=== PATIENT | male | born 1990 | race Caucasian/White ===

== ENCOUNTER 2017-08-28 01:42 | Emergency (ER) | payer SELFPAY ==
--- NOTE | 2017-08-28 03:08 | NUR ---
CALLED X4; NOT IN LOBBY
--- NOTE | 2017-08-28 03:29 | NUR ---
CALLED AGAIN; NO ANSWER
--- NOTE | 2017-08-28 03:54 | NUR ---
CALLED AGAIN; INFORMED "PT LEFT"
[2017-08-29] MEDS ORDERED: FLUO20CA36 PO (15:17)
[2017-09-04] MEDS ORDERED: LISI10TA59 PO (11:51)
== END 2017-08-28 03:55 | disposition left against medical advice (07) ==
LOC: ER 01:49
DX: Z53.21 Procedure and treatment not carried out due to patient leaving prior to being seen by health care provider (principal)

== ENCOUNTER 2017-08-29 14:35 | Inpatient (IN) | payer OTHER ==
[2017-08-29] VITALS (34 sets, daily range): BP systolic 69–163; BP diastolic 37–92
[~2017-08-29] VITALS: Ht 180.3 cm; Wt 88.9 kg
--- NOTE | 2017-08-29 14:40 | NUR ---
[id number] FROM [facility]ENITENTIARY HOUSE: ALOC, WEAKNESS, DIZZINESS. Hx OF FENTANYL ABUSE, ABLE TO STATE HE "GOT HIGH ON FENTANYL." PATIENT IS A/OX 2, BREATHING LABORED, DIAPHORETIC. PATIENT IS TACHYCARDIC, HYPOXEMIC. PLACED INTO BED, PLACED ON 15L 02 VIA NON REBREATHER, TOLERATING WELL. SAFETY AND COMFORT MEASURES IN PLACE. MD AT BEDSIDE FOR EVAL.
--- NOTE | 2017-08-29 14:45 | NUR ---
NEW IV STARTED ON RAC, 18G. BLOOD DRAWN AND SENT TO LAB.
[2017-08-29] MEDS ORDERED: NALOXONE PREFILLED SYRINGE 2 MG/2 ML SYRINGE ONE (14:46)
[2017-08-29] MEDS ORDERED: IV NS 0.9% 1,000 ML BAG IV ONE ×3 (15:00→16:30)
[2017-08-29] MEDS ORDERED: NALOXONE PREFILLED SYRINGE 2 MG/2 ML SYRINGE IV ONE (15:00)
[2017-08-29 15:14] LABS: BASOPHILS % (AUTO) 0.1 % (0.0-2.0); HEMATOCRIT 37 % (39-51); HEMOGLOBIN 12.6 g/dL (13.5-17.5); LYMPHOCYTES # (AUTO) 0.7 /CMM (0.8-4.8); LYMPHOCYTES % (AUTO) 3.2 % (20.0-44.0); MEAN CORPUSCULAR HGB CONC 34 g/dl (31.0-36.0); MEAN CORPUSCULAR VOLUME 91 fL (80-96); MONOCYTES # (AUTO) 0.9 /CMM (0.1-1.30); MONOCYTES % (AUTO) 3.8 % (2.0-12.0); NEUTROPHILS # (AUTO) 21.1 /CMM (1.8-8.9); NEUTROPHILS % (AUTO) 92.9 % (43.0-81.0); PLATELET COUNT (AUTO) 296 /CMM (150-450); RDW COEFFICIENT OF VARIATION 12.4 (11.5-15.0); RED BLOOD CELL COUNT(AUTO) 4.07 MIL/uL (4.5-6.0); WHITE BLOOD COUNT (AUTO) 22.7 K/uL (4.3-11.0)
[2017-08-29] MEDS ORDERED: FLUO20CA36 PO (15:17)
[2017-08-29] MEDS ORDERED: PIPERACILLIN /TAZOBACTAM 3.375 G in IV D5W 50 ML IV ONE (15:30)
[2017-08-29] MEDS ORDERED: VANCOMYCIN 1 GM in IV D5W 250 ML IV ONE (15:30)
--- NOTE | 2017-08-29 15:32 | NUR ---
CALLED RT FOR ABG
[2017-08-29 15:34] LABS: INR 1.28 (0.87-1.13)
--- NOTE | 2017-08-29 15:40 | NUR ---
PATIENT STILL VERY LABORED, TACHYCARDIC, AND HYPOXIC. O2 SATURATION FLUCTUATING IN THE 80'S. PATIENT STILL ALERT AND ORIENTED, MD AT BEDSIDE EXPLAINING HE MAY NEED TO BE INTUBATED. PATIENT STATED HE WISHES TO HOLD OFF ON BEING INTUBATED FOR NOW. MD AWARE.
--- NOTE | 2017-08-29 15:42 | NUR ---
CALLED NURSING SUP. FOR ICU BED
[2017-08-29 15:43] LABS: CALCIUM, SERUM 9.1 mg/dL (8.5-10.1); CARBON DIOXIDE 26 mmol/L (21-32); CHLORIDE 97 mmol/L (98-107); CREATININE 1.5 mg/dL (0.6-1.3); GLUCOSE 177 mg/dL (74-106); POTASSIUM 5.1 mmol/L (3.5-5.1); SODIUM SERUM 138 mmol/L (136-145); UREA NITROGEN, BLOOD 26 mg/dL (7-18)
[2017-08-29] MEDS ORDERED: LEVOFLOXACIN 750 MG /D5W 150ML 150 ML IV ONE ×2 (15:44→16:00)
[2017-08-29 15:49] LABS: ABG BASE EXCESS 3.5 mmol/L; ABG OXYGEN SATURATION 89.1 % (92.0-98.5); ABG PCO2 37.3 mmHg (35.0-45.0); ABG PH 7.478 (7.350-7.450); ABG PO2 58.2 mmHg (75.0-100.0); COHb 1.3 % (0.5-1.5); MetHb 0.4 % (0.0-1.5); O2Hb 87.6 % (94.0-97.0); SITE, ABG Right Radial; VENT MODE, BG NRB
[2017-08-29 15:50] LABS: ALANINE AMINOTRANSFERASE 606 U/L (12-78); ALBUMIN 3.5 g/dL (3.4-5.0); ALCOHOL, BLOOD < 3 mg/dL (0-0); ALKALINE PHOSPHATASE 53 U/L (46-116); ASPARTATE AMINOTRANSFERASE 679 U/L (15-37); BILIRUBIN,DIRECT 0.2 mg/dL (0.0-0.2); BILIRUBIN,TOTAL 0.8 mg/dL (0.2-1.0); SALICYLATE 3.4 mg/dL (2.8-20.0); TOTAL PROTEIN, SERUM 7.4 g/dL (6.4-8.2)
--- NOTE | 2017-08-29 15:51 | NUR ---
PT. UNSTABLE FOR CT
--- NOTE | 2017-08-29 15:54 | NUR ---
DR.RUTHERFORD ARYAN IMMUNOHEMATOLOGIST.
[2017-08-29 16:06] LABS: APPEARANCE,URINE CLEAR (CLEAR); BILIRUBIN,URINE NEGATIVE (NEGATIVE); BLOOD, URINE NEGATIVE Ery/uL (NEGATIVE); COLOR,URINE YELLOW (YELLOW); KETONES,URINE TRACE (NEGATIVE); LEUKOCYTE ESTERASE ,URINE NEGATIVE (NEGATIVE); NITRITE, URINE NEGATIVE (NEGATIVE); PH,URINE 5.5 (5.0-8.0); PROTEIN,URINE NEGATIVE (NEGATIVE); UGLUCOSE NEGATIVE (NEGATIVE); UROBILINOGEN,URINE 0.2 EU/dL (0.2)
[2017-08-29 16:14] LABS: ACETAMINOPHEN < 2 ug/ml (10-30)
[2017-08-29] MEDS ORDERED: IV NS 0.9% 1,000 ML IV PRN (16:14)
[2017-08-29] MEDS ORDERED: ONDANSETRON HCL/PF 4 MG/2 ML VIAL IVP PRN (16:30)
[2017-08-29] MEDS ORDERED: MORPHINE SULFATE INJ 2 MG/ML DISP.SYRIN IV PRN (16:30)
[2017-08-29] MEDS ORDERED: ZOLPIDEM TARTRATE 5 MG TABLET PO PRN (16:30)
[2017-08-29] MEDS ORDERED: ACETAMINOPHEN 325 MG TABLET PO PRN (16:30)
[2017-08-29] MEDS ORDERED: ASPIRIN 81 MG TAB.CHEW PO ONE (16:30)
[2017-08-29] MEDS ORDERED: Z GUARD REMEDY 2 OZ OINT TP PRN (16:30)
[2017-08-29] MEDS ORDERED: HYDROCODONE/APAP 5/325MG 1 EACH TABLET PO PRN (16:30)
[2017-08-29] MEDS ORDERED: ALBUTEROL FS 2.5 MG/3 ML VIAL.NEB NEB PRN (16:30)
[2017-08-29] MEDS ORDERED: MAG HYDROX/AL HYDROX/SIMETH 30 ML UDC PO PRN (16:30)
[2017-08-29] MEDS ORDERED: MAGNESIUM HYDROXIDE 30 ML UDC PO PRN (16:30)
[2017-08-29 16:33] LABS: BACTERIA,URINE Few /HPF (None Seen); RBC,URINE 0-2 /HPF (0-2); SQUAMOUS EPITHELIAL CELL,UR Few /HPF (None Seen); WBC,URINE 0-2 /HPF (0-3)
--- NOTE | 2017-08-29 17:03 | NUR ---
REPORT GIVEN TO VERNA MORFIN FOR ENRICO UPON ADMISSION.
[2017-08-29] MEDS ORDERED: PROPOFOL 100 ML IV ONE (17:14)
[2017-08-29] MEDS ORDERED: PROPOFOL 100 ML ONE (17:15)
[2017-08-29] MEDS ORDERED: FEE PK DOSING 1 MIN EA MC ONE (17:23)
--- NOTE | 2017-08-29 17:23 | NUR ---
MD AT BEDSIDE FOR INTUBATION: ETOMIDATE 20MG RAC, 18G, IVP SUCC 120MG RAC, 18G, IVP GIVEN
--- NOTE | 2017-08-29 17:25 | NUR ---
PATIENT INTUBATED: ET 7.5, 23CM AT THE LIP POSITIVIE COLOR CHANGE ON CO2 INDICATOR. SUPERVISOR WHITE SUGAR AT BEDSIDE FOR CONFIRMATION.
[2017-08-29] MEDS ORDERED: ETOMIDATE 2 MG/ML VIAL IV ONE (17:30)
[2017-08-29] MEDS ORDERED: SUCCINYLCHOLINE CHLORIDE 20 MG/ML VIAL IV ONE (17:30)
--- NOTE | 2017-08-29 17:30 | NUR ---
PO ASA NOT GIVEN, PATIENT INTUBATED.
--- NOTE | 2017-08-29 17:30 | NUR ---
RN NOTES PT RECEIVED FROM ER IN ROOM 253 FROM ER ,INTUBATED , RESTLESS, O2 SAT IN LOW 70'S ,DESPITE BEING ON FIO2 100%. PT BAGGED BY RT, WITH MINIMAL IMPROVEMENT IN SATURATION. ON-CALL TECHNICAL LABORATORY ASST PAGED FOR ORDERS. METAL PICKLING EQUIPMENT OPERATOR AT BEDSIDE AND DISCUSSING POC WITH MD'S.
--- NOTE | 2017-08-29 17:30 | NUR ---
RN NOTES UNABLE TO DO SKIN ASSESSMENT DUE TO PT CONDITION AT THIS TIME
--- NOTE | 2017-08-29 17:35 | NUR ---
PATIENT TRANSPORTED TO ICU, 253 VIA ACLS PROTOCOL. RNVERNA TO PROVIDE ENRICO.
[2017-08-29] MEDS: LORAZEPAM INJ 2 MG/ML VIAL IV PRN (18:03)
[2017-08-29] MEDS: NOREPINEPHRINE 16 MG in IV D5W 500 ML IV PRN (18:09)
[2017-08-29] MEDS: ENOXAPARIN SODIUM 40 MG/0.4 ML DISP.SYRIN SQ SCH (18:22)
--- NOTE | 2017-08-29 18:25 | NUR ---
RT NOTE PT INTUBATED PER MD ORDER. 7.5 ETT 23 CM @ LIP. CUFF INFLATED. SETTINGS PRESCRIBED BY MD ACOSTA AC 24 650 100% +15. ALARMS SET PER PROTOCOL AND AUDIBLE. VENT PLUGGED IN TO RED OUTLET. AMBU BAG AT BED SIDE. Addendum: 08/29/17 at 1827 by JOSE ACOSTA RT Amended: Links added.
[2017-08-29] MEDS ORDERED: ACETAMINOPHEN 650 MG/20.3 ML UDC NG PRN (18:30)
[2017-08-29] MEDS: PROPOFOL 100 ML IV PRN ×3 (18:40→22:22)
--- NOTE | 2017-08-29 18:50 | NUR ---
RN NOTES O2 SAT 100% AT THIS TIME , TOLERATING VENT SETTING WELL, WILL ENDORSE TO CEREAL SUPERVISOR NURSE FOR ENRICO
[2017-08-29 19:02] LABS: ABG BASE EXCESS 0.9 mmol/L; ABG OXYGEN SATURATION 98.4 % (92.0-98.5); ABG PCO2 30.8 mmHg (35.0-45.0); ABG PH 7.499 (7.350-7.450); ABG PO2 229.1 mmHg (75.0-100.0); AaDO2 453.1 mmHg; COHb 0.3 % (0.5-1.5); MetHb 0.6 % (0.0-1.5); O2Hb 97.5 % (94.0-97.0); PEEP,BG 15 cm H2O; SITE, ABG Right Radial; VT, ABG 650 mL
--- NOTE | 2017-08-29 19:23 | NUR ---
RN DR LEE CALLED BACK; UPDATED ON PT STATUS. STAT ABG'S DRAWN. RESULTS TO BE SENT BY PM RN FOR ENRICO. O2 SAT MAINTAINED OVER 92% ON ORDERED VENT SETTINGS. LEVOPHED TITRATED PER PARAMETERS. SEDATED ON DIPRIVAN PER ARDS PROTOCOL. FOR FULL NSG ASSESSMENT PLS REFER TO FLOWSHEET.
--- NOTE | 2017-08-29 19:38 | NUR ---
PT STILL UNSTABLE FOR CT SCAN, ICU WILL CALL WHEN READY.
--- NOTE | 2017-08-29 19:45 | NUR ---
UTILITY WORKER [place]: RECEIVED ORALLY INTUBATED PT. VENT SETTINGS ORDERED. NO ACUTE DISTRESS, NO EVIDENCE OF DISCOMFORT. SR ON RETAIL DIRECTOR. SEDATED ON DIPRIVAN AT 100MCG/KG/MIN. BILAT. SOFT WRIST RESTRAINTS IN PLACE TO PREVENT SELF-EXTUBATION. WT SKIN AND CIRCULATION WNL. ALSO ON LEVOPHED AT 16MCG/MIN WT NO S/S OF IV INFILTRATION. RELAYED TO DR. JESUS DOAN RESULTS WT NEW ORDER. SAFETY PRECAUTION NOTED.
--- NOTE | 2017-08-29 19:47 | NUR ---
PT RECEIVED ON THE FOLLOWING SETT ING OFF AC R24 VT650 100% +15 PEEP AND INTUBATED WITH 7.5 @ 23CM LIP LINE, PERFORMED ABG AND PER MD LEE ORDER CHANGED SETTINGS TO THE FOLLOWING AC R20 VT550 75% +10 PEEP. PERFORM ABG IN TWO HRS AFTER VENT CHANGES ARE MADE. SCANT AMOUNT OF CLEAR RED TINGED SECRETIONS SUCTIONED. AMBU BAG AT BEDSIDE VENT PLUGGED INTO RED OUTLET, ALARMS ARE SET AND ADUBILE AND NAVJOT MENDOZA AWARE OF CHANGES MADE. PT TOLERATING CHANGES Addendum: 08/29/17 at 2 by RUDDY SABA RT Amended: Links added.
[2017-08-29] MEDS ORDERED: DOBUTamine 500 MG in IV D5W 210 ML IV PRN (20:00)
[2017-08-29] MEDS ORDERED: FUROSEMIDE IV ONE ×2 (20:00)
[2017-08-29] MEDS ORDERED: DoBUTamine 500 MG/250 ML PIGGYBACK IV PRN (20:00)
[2017-08-29] MEDS ORDERED: NS 0.9% IV ONE ×2 (20:00)
[2017-08-29 20:36] LABS: CALCIUM, SERUM 7.1 mg/dL (8.5-10.1); MAGNESIUM 2.3 mg/dL (1.8-2.4); POTASSIUM 5.6 mmol/L (3.5-5.1)
[2017-08-29 20:40] LABS: PHOSPHORUS 0.9 mg/dL (2.5-4.9)
--- NOTE | 2017-08-29 21:25 | NUR ---
PT DID NOT TOLERATE FIO2 75% SPO2 90%, INCREASED TO 90% FIO2 Addendum: 08/29/17 at 2126 by RUDDY SABA RT Amended: Links added.
[2017-08-29] MEDS: NEUTRA PHOS 1 POWD.PACKET GT SCH (22:12)
[2017-08-29 22:13] LABS: ABG BASE EXCESS 5.2 mmol/L; ABG OXYGEN SATURATION 97.2 % (92.0-98.5); ABG PH 7.457 (7.350-7.450); ABG PO2 105.7 mmHg (75.0-100.0); AaDO2 491.9 mmHg; COHb 0.3 % (0.5-1.5); MetHb 0.4 % (0.0-1.5); O2Hb 96.5 % (94.0-97.0); PEEP,BG 10 cm H2O; SITE, ABG Right Radial; VT, ABG 550 mL
[2017-08-29] MEDS: VANCOMYCIN 1 GM in IV D5W 250 ML IV SCH (22:34)
[2017-08-30] VITALS (98 sets, daily range): BP systolic 81–141; BP diastolic 39–79
[2017-08-30 00:39] LABS: CALCIUM, SERUM 7.7 mg/dL (8.5-10.1); CREATININE 1.2 mg/dL (0.6-1.3); MAGNESIUM 2.2 mg/dL (1.8-2.4)
[2017-08-30 00:43] LABS: TROPONIN I 1.139 ng/mL (0.00-0.056)
[2017-08-30] MEDS: PROPOFOL 100 ML IV PRN ×11 (00:51→23:26)
--- NOTE | 2017-08-30 01:40 | NUR ---
CARDIOLOGY SPECIALIST: DR. MCCARTHY PLACED A LEFT IJ TLC (EMERGENT PT IS ON DOBUTAMINE DRIP, LEVOPHED HELD AT THIS TIME). UNABLE TO OBTAIN CONSENT FROM FAMILY MEMBER. WILL TRY TO CONTACT FAMILY AGAIN IN AM TO INFORM PT's STATUS AND POC. Addendum: 08/30/17 at 0158 by KELLY BILL RN ADDITIONAL ENTRY: PROCEDURE TOLERATED WELL. AWAITING FOR CXR RESULT.
[2017-08-30] MEDS: NEUTRA PHOS 1 POWD.PACKET GT SCH (01:41)
--- NOTE | 2017-08-30 01:55 | NUR ---
OFFICE SPEC: FI02 DECREASED TO 80. NO ACUTE DISTRESS. NO EVIDENCE OF DISCOMFORT.
--- NOTE | 2017-08-30 02:15 | NUR ---
AUTOMOTIVE ACCESSORY INSTALLER: PT's MOTHER NETTIE CALLED AND UPDATED PT's STATUS AND POC. ALSO MADE AWARE OF DNP's EMERGENT PLACEMENT OF LT. IJ TLC AND VERBALIZED UNDERSTANDING AND AGREED WT CURRENT POC.
--- NOTE | 2017-08-30 02:40 | NUR ---
PRINCIPAL CLOUD ARCHITECT: DR. MCCARTHY ORDERED TO DC DOBUTAMINE AND JUST WATCH BP AT THIS TIME. WILL CONTINUE TO MONITOR.
[2017-08-30 04:58] LABS: BASOPHILS # (AUTO) 0.1 /CMM (0.0-0.2); BASOPHILS % (AUTO) 0.3 % (0.0-2.0); HEMATOCRIT 35 % (39-51); HEMOGLOBIN 12.2 g/dL (13.5-17.5); LYMPHOCYTES # (AUTO) 1.9 /CMM (0.8-4.8); LYMPHOCYTES % (AUTO) 12.1 % (20.0-44.0); MEAN CORPUSCULAR HGB CONC 35 g/dl (31.0-36.0); MEAN CORPUSCULAR VOLUME 91 fL (80-96); MONOCYTES # (AUTO) 0.4 /CMM (0.1-1.30); MONOCYTES % (AUTO) 2.5 % (2.0-12.0); NEUTROPHILS # (AUTO) 13.1 /CMM (1.8-8.9); NEUTROPHILS % (AUTO) 85.1 % (43.0-81.0); PLATELET COUNT (AUTO) 234 /CMM (150-450); RDW COEFFICIENT OF VARIATION 12.4 (11.5-15.0); RED BLOOD CELL COUNT(AUTO) 3.81 MIL/uL (4.5-6.0); WHITE BLOOD COUNT (AUTO) 15.4 K/uL (4.3-11.0)
--- NOTE | 2017-08-30 05:20 | NUR ---
PAYROLL COORDINATOR: FI02 DECREASED TO 60% AND TOLERATING WELL. NO ACUTE DISTRESS.
[2017-08-30 05:23] LABS: CALCIUM, SERUM 7.7 mg/dL (8.5-10.1); CREATININE 1.2 mg/dL (0.6-1.3); PHOSPHORUS 2.4 mg/dL (2.5-4.9); POTASSIUM 3.6 mmol/L (3.5-5.1)
[2017-08-30] MEDS: NOREPINEPHRINE 16 MG in IV D5W 500 ML IV PRN ×2 (06:21→20:04)
--- NOTE | 2017-08-30 06:25 | NUR ---
GEOSCIENCE PROFESSOR: RESTARTED LEVOPHED DUE TO SBP LESS THAN 90.
[2017-08-30] MEDS: VANCOMYCIN 1 GM in IV D5W 250 ML IV SCH ×3 (06:35→23:25)
--- NOTE | 2017-08-30 08:00 | NUR ---
ICU/RN AM SHIFT INITIAL NOTES RECEIVED PT ASLEEP, SEDATED. NO GRIMACING NOTED, OR ACUTE CHANGE OF CONDITION AT THIS TIME. ON VENTILATOR SUPPORT WITH RATES SET PRESCRIBED, OG TUBE 23CM ON LIP, SATURATING @ 99%, RESPIRATIONS EVEN & UNLABORED. ON TELE MONITORING WITH SINUS RHYTHM, HR 69. ON GOING IV INFUSION OF LEVOPHED @ 4MCG/MIN, SBP SUSTAINING @ 92/42, HR 69 AND PROPOFOL @ 75MCG/KG/MIN. ZEE CATHETER INTACT WITH YELLOW URINE OUTPUT. PT IS COMFORTABLE AT THIS TIME. CLOSELY MONITORING. CL WITHIN REACHED AND SAFETY MAINTAINED.
[2017-08-30 09:51] LABS: ABG BASE EXCESS 11.7 mmol/L; ABG OXYGEN SATURATION 96.1 % (92.0-98.5); ABG PCO2 42.5 mmHg (35.0-45.0); ABG PH 7.539 (7.350-7.450); ABG PO2 84.8 mmHg (75.0-100.0); AaDO2 151.5 mmHg; COHb 0.3 % (0.5-1.5); MetHb 0.4 % (0.0-1.5); O2Hb 95.4 % (94.0-97.0); PEEP,BG 10 cm H2O; SITE, ABG Right Radial; VENT MODE, BG AC 20; VT, ABG 550 mL
--- NOTE | 2017-08-30 09:58 | NUR ---
SPOKE WITH RN, PT STILL UNSTABLE TO COME DOWN FOR CT HEAD WO.
--- NOTE | 2017-08-30 11:49 | NUR ---
ICU/RN ROUNDS - DRs. GARCIA & JOAQUINA UPDATED DR. GARCIA OF PT'S CONDITION. PT BEING SEEN BY DRs. GARCIA & JOAQUINA WITH PT'S MOTHER AT BEDSIDE. NO NEW ORDERS RECEIVED AT THIS TIME. MONITORING CONTINUES.
--- NOTE | 2017-08-30 12:42 | NUR ---
ICU/RN ROUNDS - DR. LEE UPDATED PT'S CONDITION, PT SEEN & EXAMINED BY DR. LEE. WITH VERBAL ORDER RECEIVED TO LOWER AC RATE FROM 20 TO 12. CHARGE NURSE MADE AWARE. NOTED AND CARRIED OUT. MONITORING CONTINUED.
[2017-08-30] MEDS ORDERED: FUROSEMIDE 40 MG/4 ML VIAL IV ONE (13:00)
[2017-08-30] MEDS: LEVOFLOXACIN 500 MG /D5W 100ML 500 MG in PREMIX 1 EA IV SCH (14:29)
--- NOTE | 2017-08-30 15:00 | NUR ---
ICU/RN INSURANCE INFORMATION INSURANCE INFORMATION PROVIDED BY PT'S MOTHER. CALLED ER ADMITTING RELAYED THE INFORMATION FOR WORKFORCE MANAGEMENT COORDINATOR, CHARGE NURSE AWARE.
--- NOTE | 2017-08-30 16:00 | NUR ---
ICU/RN AFTERNOON ROUNDS PM CARE PROVIDED, NO ACUTE CHANGE OF CONDITION. PT'S MOTHER AT BEDSIDE. MONITORING CONTINUED.
[2017-08-30] MEDS ORDERED: LACTOBACILLUS RHAMNOSUS GG 1 EACH CAP.SPRINK PO SCH (17:00)
[2017-08-30] MEDS: ENOXAPARIN SODIUM 40 MG/0.4 ML DISP.SYRIN SQ SCH (17:05)
[2017-08-30] MEDS: POTASSIUM PHOSPHATE MM 7.5 MMOL in IV D5W 100 ML IV SCH ×2 (17:06→21:04)
--- NOTE | 2017-08-30 18:18 | NUR ---
PT STILL UNSTABLE FOR CT SCAN NAVJOT ARREOLA WILL CALL.
[2017-08-30] MEDS: LORAZEPAM INJ 2 MG/ML VIAL IV PRN (18:37)
--- NOTE | 2017-08-30 19:30 | NUR ---
ICU/RN AM SHIFT END NOTES ALL NEEDS MET. NO ACUTE CHANGE OF CONDITION NOTED DURING THE SHIFT. PT ENDORSED TO PM NURSE TO CONTINUE CARE. IV SITES PATENT, WITH ON GOING IV INFUSION OF PROPOFOL @ 75MCG/KG/MIN, LEVOPHED @ 3MCG/MIN AND POTASSIUM PHOSPHATE @ 34.167CC/HR. ZEE CATHETER INTACT. OG TUBE INTACT WITH 23CM ON LIP, VENTILATOR RATES OF AC 12, TV 550, FIO2 40% AND PEEP 10. BILATERAL SOFT WRISTS RESTRAINTS IN PLACE. SAFETY MAINTAINED.
[2017-08-31] VITALS (95 sets, daily range): BP systolic 82–174; BP diastolic 33–96
[2017-08-31 00:34] LABS: CALCIUM, SERUM 7.3 mg/dL (8.5-10.1); CREATININE 1.2 mg/dL (0.6-1.3); POTASSIUM 3.4 mmol/L (3.5-5.1)
[2017-08-31 00:38] LABS: MAGNESIUM 2.2 mg/dL (1.8-2.4); PHOSPHORUS 4.4 mg/dL (2.5-4.9)
--- NOTE | 2017-08-31 00:45 | NUR ---
HOG STOMACH PREPARER: RELAYED ALL LABS RESULTS TO DR. MCCARTHY PT HAD EPISODES OF SB (LOWEST 38 UNSUSTAINED). ASYMPTOMATIC . ALSO INFORMED DNP THAT PT HAS LOW URINE OUTPUT AND A LITTLE BIT GREENISH IN COLOR. DNP WT ORDER TO ADD TRIGLYCERIDES IN AM LABS. NO OTHER ORDERS AT THIS TIME. NO SIGNIFICANT ENRICO. STILL ON DIPRIVAN AT 65MCG/KG/MIN AND LEVOPHED AT 3MCG/MIN. WILL CONTINUE TO MONITOR.
[2017-08-31] MEDS: PROPOFOL 100 ML IV PRN ×11 (01:55→22:49)
[2017-08-31 05:21] LABS: CALCIUM, SERUM 7.4 mg/dL (8.5-10.1); CREATININE 1.1 mg/dL (0.6-1.3); PHOSPHORUS 3.9 mg/dL (2.5-4.9); POTASSIUM 3.1 mmol/L (3.5-5.1)
[2017-08-31] MEDS: IV NS 0.9% 250 ML IV PRN (05:30)
[2017-08-31] MEDS: VANCOMYCIN 1 GM in IV D5W 250 ML IV SCH ×3 (06:50→22:48)
--- NOTE | 2017-08-31 07:10 | NUR ---
RN INITIAL NOTES RECEIVED PT INTUBATED, ON VENT. NO RESPIRATORY DISTRESS NOTED. NO SOB NOTED. NO SIGNS OF PAIN NOTED. PT ON DIPRIVAN AT 65MCG/KG/MIN. WILL TITRATE ACCORDINGLY. IV LINES IN PLACE. OG CLAMPED. FC IN PLACE. NO HEMATURIA NOTED. BLE ELEVATED. PT COMFORTABLE. WILL CONTINUE TO MONITOR.
--- NOTE | 2017-08-31 07:20 | NUR ---
AOC AIRSPACE CONTROL OFFICER: STILL OFF LEVOPHED, DIPRIVAN AT 65MCG/KG/MIN. NO ACUTE DISTRESS, NO EVIDENCE OF DISCOMFORT.
--- NOTE | 2017-08-31 08:45 | NUR ---
RN NOTES SEEN AND EXAMINED BY DR. KUNZ. PT SEDATED. OFF LEVO. REMAINS INTUBATED. NO RESPIRATORY DISTRESS NOTED. MD AWARE OF LAB RESULT: WBC 15.4, HGB 12.2, HCT 35. POTASSIUM 3.1, ORDERED KCL 60MEQ TOTAL FOR REPLACEMENT. TROPONIN 0.463, TRENDING DOWN. AWAITING CXR RESULT. WILL CLOSELY MONITOR.
[2017-08-31] MEDS ORDERED: POTASSIUM CL. PREMIX PERIPHER. 50 ML IV SCH (09:30)
[2017-08-31] MEDS: POTASSIUM CL. PREMIX PERIPHER. 50 ML IV SCH ×6 (09:41→14:48)
[2017-08-31 09:46] LABS: BASOPHILS % (AUTO) 0.4 % (0.0-2.0); EOSINOPHILS % (AUTO) 0.9 % (0.0-6.0); HEMATOCRIT 34 % (39-51); HEMOGLOBIN 11.7 g/dL (13.5-17.5); LYMPHOCYTES # (AUTO) 1.9 /CMM (0.8-4.8); LYMPHOCYTES % (AUTO) 18.8 % (20.0-44.0); MEAN CORPUSCULAR HGB CONC 34 g/dl (31.0-36.0); MEAN CORPUSCULAR VOLUME 92 fL (80-96); MONOCYTES # (AUTO) 0.4 /CMM (0.1-1.30); MONOCYTES % (AUTO) 3.8 % (2.0-12.0); NEUTROPHILS # (AUTO) 7.6 /CMM (1.8-8.9); NEUTROPHILS % (AUTO) 76.1 % (43.0-81.0); PLATELET COUNT (AUTO) 226 /CMM (150-450); RDW COEFFICIENT OF VARIATION 12.4 (11.5-15.0); WHITE BLOOD COUNT (AUTO) 9.9 K/uL (4.3-11.0)
[2017-08-31] MEDS: LORAZEPAM INJ 2 MG/ML VIAL IV PRN ×2 (10:19→19:02)
--- NOTE | 2017-08-31 10:36 | NUR ---
RN NOTES SEEN AND EXAMINED BY DR. GARCIA. PT SEDATED, ON DIPRIVAN. OFF LEVO. PT INTUBATED, TOLERATING VENT. NO RESPIRATORY DISTRESS NOTED AT THIS TIME. NO SIGNS OF PAIN NOTED. OG CLAMPED. FC IN PLACE. GREENISH URINE NOTED. MD AWARE OF LAB VALUES: WBC 15.4, HGB 12.2, HCT 35, PLATELET 234. POTASSIUM 3.1, REPLACING WITH KCL 60MEQ TOTAL. TROPONIN 0.463, TRENDING DOWN. TRIGLYCERIDE 621. ON DIPRIVAN AT 80MCG/KG/MIN. ALSO AWARE OF CXR RESULT. AWAITING FOR ORDER/S. WILL CONTINUE TO MONITOR.
[2017-08-31 11:09] LABS: ABG BASE EXCESS 12.2 mmol/L; ABG OXYGEN SATURATION 97.8 % (92.0-98.5); ABG PCO2 46.4 mmHg (35.0-45.0); ABG PH 7.515 (7.350-7.450); ABG PO2 118.4 mmHg (75.0-100.0); AaDO2 113.4 mmHg; COHb 0.3 % (0.5-1.5); MetHb 0.6 % (0.0-1.5); O2Hb 96.9 % (94.0-97.0); PEEP,BG 10 cm H2O; SITE, ABG Right Radial; VT, ABG 550 mL
--- NOTE | 2017-08-31 12:30 | NUR ---
RN NOTES SEEN AND EXAMINED BY DR. LEE. NO RESPIRATORY DISTRESS NOTED. NO SOB NOTED. NO SIGNS OF PAIN NOTED. PT INTUBATED, ON VENT. PT ON DIPRIVAN. TRIGLYCERIDE LEVEL HIGH. MD AWARE OF CXR RESULT. NO ORDER MADE. WILL MONITOR.
[2017-08-31] MEDS: LEVOFLOXACIN 500 MG /D5W 100ML 500 MG in PREMIX 1 EA IV SCH (16:44)
[2017-08-31] MEDS: ENOXAPARIN SODIUM 40 MG/0.4 ML DISP.SYRIN SQ SCH (16:54)
--- NOTE | 2017-08-31 18:37 | NUR ---
RN CLOSING NOTES PT REMAINS INTUBATED, ON VENT. NO RESPIRATORY DISTRESS NOTED. NO SOB NOTED. PT SEDATED. DIPRIVAN TITRATED ACCORDINGLY. FC IN PLACE. PT KEPT CLEAN AND DRY. KEPT COMFORTABLE. KEPT BLE ELEVATED. WILL ENDORSE FOR CONTINUITY OF CARE.
--- NOTE | 2017-08-31 19:30 | NUR ---
CHIROPRACTIC PRACTICE MANAGER INITIAL NOTES RECEIVED PATIENT SEDATED. NO S/S OF PAIN OR DISCOMFORT NOTED. WITH ETT 7.5CM, 23CM LIP. VENT SETTINGS AC 12, TV 550, FIO2 40%, PEEP 10, SPO2 99%. NO RESPIRATORY DISTRESS NOTED. ON TELE MONITOR SR 69. OGT PATENT AND INTACT, IN PLACE, CLAMPED. LIJ TLC, PATENT AND INTACT WITH DIPRIVAN AT 90MCG/KG/MIN, AND TKO. F/C PATENT AND INTACT, DRAINING BY GRAVITY. BILATERAL SOFT RESTRAINTS IN PLACE, CIRCULATION CHECKED. HOB ELEVATED. TURNED AND REPOSITIONED. SIDE RAILS UP AND LOCKED. BED KEPT AT LOWEST POSITION. CALL WILL CONTINUE TO MONITOR.
[2017-09-01] VITALS (41 sets, daily range): BP systolic 100–143; BP diastolic 43–71
--- NOTE | 2017-09-01 | NUR ---
NOTED PATIENT WITH ORAL TEMP 99.4, COOLING MEASURES RENDERED. WILL CONTINUE TO MONITOR.
[2017-09-01] MEDS: LORAZEPAM INJ 2 MG/ML VIAL IV PRN ×3 (01:01→13:30)
[2017-09-01] MEDS: PROPOFOL 100 ML IV PRN ×9 (01:12→16:22)
[2017-09-01 05:39] LABS: BASOPHILS % (AUTO) 0.3 % (0.0-2.0); EOSINOPHILS % (AUTO) 3.1 % (0.0-6.0); HEMATOCRIT 33 % (39-51); HEMOGLOBIN 11.6 g/dL (13.5-17.5); LYMPHOCYTES # (AUTO) 1.4 /CMM (0.8-4.8); LYMPHOCYTES % (AUTO) 15.1 % (20.0-44.0); MEAN CORPUSCULAR HGB CONC 35 g/dl (31.0-36.0); MEAN CORPUSCULAR VOLUME 91 fL (80-96); MONOCYTES # (AUTO) 0.6 /CMM (0.1-1.30); MONOCYTES % (AUTO) 6.3 % (2.0-12.0); NEUTROPHILS # (AUTO) 7.1 /CMM (1.8-8.9); NEUTROPHILS % (AUTO) 75.2 % (43.0-81.0); PLATELET COUNT (AUTO) 232 /CMM (150-450); RED BLOOD CELL COUNT(AUTO) 3.62 MIL/uL (4.5-6.0); WHITE BLOOD COUNT (AUTO) 9.4 K/uL (4.3-11.0)
[2017-09-01 05:57] LABS: BILIRUBIN,TOTAL 0.6 mg/dL (0.2-1.0); MAGNESIUM 2.3 mg/dL (1.8-2.4); PHOSPHORUS 3.8 mg/dL (2.5-4.9); POTASSIUM 3.4 mmol/L (3.5-5.1); TOTAL PROTEIN, SERUM 6.8 g/dL (6.4-8.2)
[2017-09-01] MEDS: VANCOMYCIN 1 GM in IV D5W 250 ML IV SCH ×3 (06:14→23:29)
--- NOTE | 2017-09-01 07:05 | NUR ---
RN INITIAL NOTES RECEIVED PT INTUBATED, ON VENT. NO RESPIRATORY DISTRESS NOTED. NO SOB NOTED. NO SIGNS OF PAIN NOTED. PT ON DIPRIVAN AT 95MCG/KG/MIN. WILL TITRATE ACCORDINGLY. IV LINES IN PLACE. OG CLAMPED. FC IN PLACE. NO HEMATURIA NOTED. BLE ELEVATED. PT COMFORTABLE. WILL CONTINUE TO MONITOR.
--- NOTE | 2017-09-01 07:33 | NUR ---
RESIDENCY COORDINATOR CLOSING NOTES NO SIGNIFICANT CHANGES OVERNIGHT. TOLERATING CURRENT VENT SETTINGS. OGT IN PLACE. F/C PATENT AND INTACT, DRAINING BY GRAVITY. LIJ PATENT AND INTACT, WITH DIPRIVAN AT 95MCG/KG/MIN. KEPT CLEAN AND DRY. AFEBRILE. TURNED AND REPOSITIONED Q2 AND PRN. HOB ELEVATED. SIDE RAILS UP AND LOCKED. BED KEPT AT LOWEST POSITION. BILATERAL SOFT RESTRAINTS IN PLACE. CONTINUITY OF CARE ENDORSED TO AM NURSE.
--- NOTE | 2017-09-01 08:40 | NUR ---
SPOKE WITH RN, PATIENT STILL UNSTABLE TO COME DOWN FOR CT HEAD.
--- NOTE | 2017-09-01 09:00 | NUR ---
RN NOTES PT EYES OPEN, AGITATED. UNABLE TO FOLLOW COMMANDS. PT BITTING ETT AND MOVING BUE. UNABLE TO DO SEDATION VACATION. WILL MONITOR.
--- NOTE | 2017-09-01 09:20 | NUR ---
RN NOTES SEEN AND EXAMINED BY DR. KNAPP. PT NOTED COUGHING, BITTING ETT, AGITATED. WILL INCREASE DIPRIVAN. MD AWARE PF LAB VALUES AND CXR RESULT. MD ORDERED TO CHANGE ATIVAN ORDER TO Q1 PRN. AWAITING ABG RESULT. WILL CLOSELY MONITOR.
[2017-09-01 09:54] LABS: ABG BASE EXCESS 6.1 mmol/L; ABG OXYGEN SATURATION 93.7 % (92.0-98.5); ABG PCO2 43.8 mmHg (35.0-45.0); ABG PH 7.462 (7.350-7.450); ABG PO2 73.6 mmHg (75.0-100.0); AaDO2 161.2 mmHg; COHb 0.3 % (0.5-1.5); MetHb 1.1 % (0.0-1.5); O2Hb 92.4 % (94.0-97.0); SITE, ABG Right Radial; VENT MODE, BG AC 12 550 40% +10
[2017-09-01] MEDS ORDERED: DC PROPOFOL WHEN EXTUBATED XX PRN (10:00)
--- NOTE | 2017-09-01 10:30 | NUR ---
RN NOTES ABG RESULT RELAYED TO DR. KNAPP. NO CHANGES MADE. WILL CONTINUE TO MONITOR.
--- NOTE | 2017-09-01 12:15 | NUR ---
RN NOTES SEEN AND EXAMINED BY DR. KUNZ. PT REMAINS INTUBATED, ON VENT. ON DIPRIVAN AT 100MCG/KG/MIN. AWARE OF LAB VALUES, CXR AND ABG RESULT.DISCUSSED PLAN OF CARE WITH MOTHER AT BEDSIDE. WILL CONTINUE TO MONITOR.
[2017-09-01] MEDS: POTASSIUM CL. PREMIX PERIPHER. 50 ML IV SCH ×2 (12:28→13:24)
--- NOTE | 2017-09-01 15:00 | NUR ---
RN NOTES SEEN AND EXAMINED BY DR. GARCIA. PT INTUBATED, ON VENT. PT SEDATED, ON DIPRIVAN AT 100MCG/KG/MIN. MD AWARE OF LAB VALUES: WBC 9.4, ON IV ATB. HGB 11.6, HCT 33, PLATELET 232. POTASSIUM 3.4, REPLACED WITH KCL 20MEQ IVPB. FC IN PLACE. GREENISH URINE NOTED. PT COMFORTABLE. WILL CONTINUE TO MONITOR.
[2017-09-01] MEDS: LEVOFLOXACIN 500 MG /D5W 100ML 500 MG in PREMIX 1 EA IV SCH (15:47)
--- NOTE | 2017-09-01 16:18 | NUR ---
FIO2 DECREASED TO 60% DUE TO INCREASED SPO2 Addendum: 09/01/17 at 1619 by RANDI AMADO Amended: Links added.
--- NOTE | 2017-09-01 16:25 | NUR ---
RN NOTES DR. KNAPP IN THE UNIT. DISCUSSED PLAN OF CARE WITH MOM IN THE ROOM. MD ORDERED TITRATE DIPRIVAN UNTIL PT IS AWAKE THEN CHANGE VENT SETTINGS TO SIMV 4, PS 12, FI02 50%, PEEP 6. WILL CLOSELY MONITOR.
[2017-09-01] MEDS: ENOXAPARIN SODIUM 40 MG/0.4 ML DISP.SYRIN SQ SCH (16:30)
--- NOTE | 2017-09-01 16:45 | NUR ---
SIMV 4 550 50% +6 PS[address] PER [address] KNAPP Addendum: 09/01/17 at 1645 by RANDI AMADO Amended: Links added.
[2017-09-01 17:25] LABS: ABG BASE EXCESS 6.9 mmol/L; ABG OXYGEN SATURATION 94.5 % (92.0-98.5); ABG PCO2 38.6 mmHg (35.0-45.0); ABG PH 7.513 (7.350-7.450); ABG PO2 73.9 mmHg (75.0-100.0); AaDO2 239.2 mmHg; COHb 0.1 % (0.5-1.5); MetHb 0.7 % (0.0-1.5); O2Hb 93.7 % (94.0-97.0); PEEP,BG 6 cm H2O; SITE, ABG Right Radial; VENT MODE, BG SIMV 4 550 50% +6 PS12; VT, ABG 550 mL
--- NOTE | 2017-09-01 17:35 | NUR ---
RN NOTES RELAYED ABG RESULT TO DR. KNAPP. ORDERED FOR EXTUBATION. PT EXTUBATED. PLACED ON 02 AT 5LPM VIA NC. HOB ELEVATED. PT A/OX1-2. ABLE TO FOLLOW SIMPLE COMMANDS. WILL CONTINUE TO MONITOR.
--- NOTE | 2017-09-01 17:54 | NUR ---
PT EXTUBATED PER MD ORDER BY RT WITH RN AT BEDSIDE @1735. PT SHOWING NO RESP DISTRESS AT THIS TIME. PT PLACED ON N/C 5L Addendum: 09/01/17 at 1756 by RANDI BERMUDEZ RT Amended: Links added.
--- NOTE | 2017-09-01 18:43 | NUR ---
RN CLOSING NOTES PT A/OX1-2. FOLLOWS SIMPLE COMMANDS. ON 02 AT 5LPM VIA NC. NO RESPIRATORY DISTRESS NOTED. NO SOB NOTED. DENIES ANY PAIN. IV LINES IN PLACE. FC IN PLACE. KEPT CLEAN AND DRY. ASSISTED AND REPOSITIONING. BLE ELEVATED. WILL ENDORSE FOR CONTINUITY OF CARE.
--- NOTE | 2017-09-01 19:30 | NUR ---
MEDIA LIAISON OFFICER INITIAL NOTES RECEIVED PATIENT AWAKE A/O2, ABLE TO MAKE NEEDS KNOWN. S/P EXTUBATION, SPEECH SLIGHTLY GARBLED. NO RESPIRATORY DISTRESS NOTED, ON 5LPMO2 VIA NC, SPO2 98%. DENIES PAIN OR DISCOMFORT. DENIES SOB. ON TELE MONITOR SR 81. SKIN WARM AND DRY TO TOUCH. F/C PATENT AND INTACT, DRAINING BY GRAVITY. MOTHER AT BEDSIDE. WITH LIJ PATENT AND INTACT. HOB ELEVATED. SIDE RAILS UP AND LOCKED. BED KEPT AT LOWEST POSITION. CALL LIGHT KEPT WITHIN EASY REACH. WILL CONTINUE TO MONITOR.
--- NOTE | 2017-09-01 23:08 | NUR ---
NOTED PATIENT REMOVING OXYGEN MASK, FREQUENTLY REMINDED HE NEEDS HIS OXYGEN. PATIENT STATES HE'S HAVING A PANIC ATTACK. INFORMED DR. MCCARTHY WITH ORDER FOR ATIVAN 0.5MG IVPX1. NOTED. WILL CONTINUE TO MONITOR. Addendum: 09/01/17 at 2312 by MARY LOWRY RN DELETE NOTE. FOR WRONG PATIENT.
[2017-09-02] VITALS (18 sets, daily range): BP systolic 95–148; BP diastolic 33–112
[2017-09-02 05:07] LABS: BASOPHILS % (AUTO) 0.1 % (0.0-2.0); EOSINOPHILS % (AUTO) 2.6 % (0.0-6.0); HEMATOCRIT 36 % (39-51); HEMOGLOBIN 12.3 g/dL (13.5-17.5); LYMPHOCYTES # (AUTO) 1.2 /CMM (0.8-4.8); LYMPHOCYTES % (AUTO) 11.8 % (20.0-44.0); MEAN CORPUSCULAR HGB CONC 34 g/dl (31.0-36.0); MEAN CORPUSCULAR VOLUME 91 fL (80-96); MONOCYTES # (AUTO) 0.8 /CMM (0.1-1.30); MONOCYTES % (AUTO) 7.8 % (2.0-12.0); NEUTROPHILS # (AUTO) 7.8 /CMM (1.8-8.9); NEUTROPHILS % (AUTO) 77.7 % (43.0-81.0); PLATELET COUNT (AUTO) 261 /CMM (150-450); RDW COEFFICIENT OF VARIATION 12.2 (11.5-15.0); RED BLOOD CELL COUNT(AUTO) 3.94 MIL/uL (4.5-6.0)
[2017-09-02 05:21] LABS: CALCIUM, SERUM 8.6 mg/dL (8.5-10.1); CREATININE 0.9 mg/dL (0.6-1.3); POTASSIUM 3.4 mmol/L (3.5-5.1)
[2017-09-02] MEDS: VANCOMYCIN 1 GM in IV D5W 250 ML IV SCH ×3 (06:16→22:01)
--- NOTE | 2017-09-02 07:34 | NUR ---
POCKETBOOK MAKER CLOSING NOTES NO SIGNIFICANT CHANGES OVERNIGHT. NO RESPIRATORY DISTRESS NOTED. TOLERATING 5LPMO2 VIA NC. SKIN WARM AND DRY TOUCH. ALL DUE MEDS GIVEN. PENDING SWALLOW EVAL TODAY. PATIENT AWAKE AND ALERT, ABLE TO MAKE NEEDS KNOWN. F/C PATENT AND INTACT, DRAINING BY GRAVITY. SIDE RAILS UP AND LOCKED. BED KEPT AT LOWEST POSITION. CALL LIGHT KEPT WITHIN EASY REACH. CONTINUITY OF CARE ENDORSED TO AM NURSE.
--- NOTE | 2017-09-02 07:45 | NUR ---
ICU/RN - Initial Notes Received pt in bed, alert and oriented x2-3. S/p extubated yesterday, raspy voice noted. Reoriented to date/time. On tele reading SR 60s. On O2 @ 5lpm via nasal cannula. Covarrubias catheter intact draining urine to gravity. Pt kept NPO as ordered, pending swallow evaluation. Safety and comfort measures in place. Will continue to monitor pt closely.
--- NOTE | 2017-09-02 08:59 | NUR ---
ICU/RN - Notes Speech therapist at bedside for swallow evaluation.
[2017-09-02] MEDS: POTASSIUM CHLORIDE 20 MEQ TAB.PRT.SR PO SCH ×2 (10:09→11:13)
[2017-09-02 10:22] LABS: ALBUMIN 3.2 g/dL (3.4-5.0); BILIRUBIN,DIRECT 0.1 mg/dL (0.0-0.2); BILIRUBIN,TOTAL 0.6 mg/dL (0.2-1.0); TOTAL PROTEIN, SERUM 7.1 g/dL (6.4-8.2)
--- NOTE | 2017-09-02 12:35 | NUR ---
ICU/RN - Notes Dr Sullivan at bedside for Psych Evaluation.
--- NOTE | 2017-09-02 14:06 | NUR ---
Social service consult requested by Dr. Kate for drug abuse. Pt. is a 27 year old male who was admitted to [facility] for acute respiratory failure due to drug use. MARTHA met with pt. and his mother Manisha bedside. Pt. gave consent to SW to speak to him with his mother present bedside. Pt. resides at a sober living located at [address] [place] [address], in [facility]. Pt. appeared to have some slurred speech making it difficult to understand him at times. Pt. appeared hesitant to truthfully answer the questions that were being asked of him. SW once again asked pt. if he would like for his mother to step outside for a moment. Pt. declined. Pt. has been living at his sober living for the past month. Prior to living in the sober home, pt. had completed a drug treatment program. Pt. relapsed once he moved into the sober living. Pt. has a history of heroin use. Pt. tried Fentanyl for the first time last week and was hospitalized. Pt. has anxiety disorder and was taking Prozac. However, pt. states he stopped taking it two weeks ago. Pt. denies suicidal and homicidal ideations and visual/auditory hallucinations at this time. SW offered pt. referrals to drug treatment programs, however pt. declined stating that he has referrals and resources that he needs. Pt's mother Manisha also informed SW that pt. is linked to services and will be going to a different sober living. Pt. also had a psychiatric consult with Dr. Sullivan. MARTHA consulted with Dr. Sullivan who informed MARTHA that she will give pt. referral to [facility] located at [address] [place] [address]. [place] [address] . No other social service needs are requested at this time. SW is available, if needed.
--- NOTE | 2017-09-02 14:55 | NUR ---
ICU/RN - Transfer Pt cleared for MedSurg status. Pt transferred to 204 in stable condition. Report given to NAVJOT Headley for continuity of care. All belongings taken with pt. Mother aware of transfer and at bedside.
--- NOTE | 2017-09-02 15:20 | NUR ---
MS RN NOTES PATIENT BROUGHT IN FROM ICU VIA BED, PATIENT IS AWAKE, APPEARS WEAK, SPEECH UNCLEAR AND SLURRED. PATIENT IS A/O X3, ORIENTED TO ROOM, UNIT, USE OF CALL LIGHT WITHIN REACH. SKIN INTACT, IVC LEFT IJ TRIPLE LUMEN PATENT AND INTACT, FLUSHES WELL. ZEE CATH IN PLACE, URINE COLOR GREEN PER POUNCER MACHINE PATIENT RECEIVED PROPOFOL MEDICATION, PATIENT DENIES PAIN. SKIN INTACT, ABLE TO TURN AND REPOSITION IN BED, SCD IN PLACE. FALL AND SAFETY PRECAUTION MAINTAINED. WILL CONT TO MONITOR.
[2017-09-02] MEDS: IV NS 0.9% 250 ML IV PRN (15:22)
[2017-09-02] MEDS: LEVOFLOXACIN (500MG) 500 MG TABLET PO SCH (15:41)
[2017-09-02] MEDS: ENOXAPARIN SODIUM 40 MG/0.4 ML DISP.SYRIN SQ SCH (17:47)
--- NOTE | 2017-09-02 18:38 | NUR ---
MS RN CLOSING NOTES HEAD CT RESULT PENDING, PATIENT TOLERATING ROOM AIR, SATING 97% NO SOB. POOR APPETITE, ENCOURAGE PO FLUIDS. ZEE CATH IN PLACE, BAG OFF THE FLOOR, URINE STILL GREEN COLOR, DENIES PAIN. CALL LIGHT WITHIN REACH. WILL ENDORSE TO ONCOMING RN.
--- NOTE | 2017-09-02 19:30 | NUR ---
RECEIVED PT IN BED DOZING INTERMITTENTLY. OX3. BREATHING EVENLY. NO SOB. NAD .SKIN WARM AND DRY, DENIED SOB. DENIED PAIN OR DISCOMFORT, DENIED N/V. F/C IN PLACE DRAINING GREENISH YELLOW URINE. NEEDS ATTENDED. BED LOW LOCKED. CALL LIGHT WITHIN REACH. WILL CONT TO MONITOR ,
--- NOTE | 2017-09-02 22:01 | NUR ---
ALPAIEN GIVEN ORDERED PER PT'S REQUEST FOR C/O INSOMNIA, WILL CONT TO MONITOR
[2017-09-03] MEDS: LORAZEPAM INJ 2 MG/ML VIAL IV PRN ×5 (00:41→22:33)
--- NOTE | 2017-09-03 00:41 | NUR ---
ATIVAN INJ GIVEN ORDERED PER PT'S REQUEST FOR C/O AGITATION . WILL CONT TO MONITOR ,
[2017-09-03 06:41] LABS: BASOPHILS % (AUTO) 0.3 % (0.0-2.0); EOSINOPHILS % (AUTO) 4.8 % (0.0-6.0); HEMATOCRIT 40 % (39-51); HEMOGLOBIN 13.6 g/dL (13.5-17.5); LYMPHOCYTES # (AUTO) 1.4 /CMM (0.8-4.8); LYMPHOCYTES % (AUTO) 11.6 % (20.0-44.0); MEAN CORPUSCULAR HGB CONC 34 g/dl (31.0-36.0); MEAN CORPUSCULAR VOLUME 90 fL (80-96); NEUTROPHILS # (AUTO) 9.1 /CMM (1.8-8.9); NEUTROPHILS % (AUTO) 75.3 % (43.0-81.0); PLATELET COUNT (AUTO) 280 /CMM (150-450); RDW COEFFICIENT OF VARIATION 12.4 (11.5-15.0); RED BLOOD CELL COUNT(AUTO) 4.38 MIL/uL (4.5-6.0); WHITE BLOOD COUNT (AUTO) 12.1 K/uL (4.3-11.0)
--- NOTE | 2017-09-03 06:43 | NUR ---
PT IN BED STABLE, NO S/S OF WITHDRAWAL. HAD A GOOD NIGHT SLEEP W/ NO ACUTE EVENT DURING THE NIGHT. NEEDS ATTENDED . CALL LIGHT WITHIN REACH, WILL CONT TO MONITOR AND WILL ENDORSE TO AM SHIFT FOR ENRICO.
[2017-09-03 06:55] LABS: BILIRUBIN,TOTAL 0.5 mg/dL (0.2-1.0); CREATININE 0.9 mg/dL (0.6-1.3); MAGNESIUM 1.9 mg/dL (1.8-2.4); PHOSPHORUS 4.3 mg/dL (2.5-4.9); POTASSIUM 3.9 mmol/L (3.5-5.1)
--- NOTE | 2017-09-03 07:37 | NUR ---
MS RN OPENING NOTE PATIENT IS ALERT AND ORIENTED x3. NO PAIN AT THIS TIME. NO SOB OR DISTRESS NOTED. CALL LIGHT WITHIN REACH. SAFETY MEASURES IMPLEMENTED. ABLE TO COMMUNICATE NEEDS. IV INTACT AND PATENT NO REDNESS OR SWELLING NOTED. ZEE CATHETER IN PLACE, DRAINING WELL. PENDING LABS THIS MORNING. WILL CONTINUE TO MONITOR THROUGHOUT SHIFT
[2017-09-03 08:00] VITALS: BP 102/60
[2017-09-03] MEDS: VANCOMYCIN 1 GM in IV D5W 250 ML IV SCH ×3 (08:04→22:35)
[2017-09-03] MEDS: LISINOPRIL (10MG) 10 MG TABLET PO SCH (09:30)
--- NOTE | 2017-09-03 09:40 | NUR ---
MS RN NOTE PER MD TO REMOVE ZEE CATHETER. ZEE CATHETER REMOVED, PATIENT STATED NO PAIN. URINAL LEFT AT BEDSIDE. ENCOURAGED TO DRINK FLUIDS THROUGHOUT SHIFT. WILL MONITOR FOR URINE OUTPUT
--- NOTE | 2017-09-03 10:44 | NUR ---
MS RN NOTE PATIENT REQUESTING ATIVAN 1 MG FOR ANXIETY. ATIVAN GIVEN, WILL MONITOR FOR ANY SIDE EFFECTS.
[2017-09-03] MEDS: LEVOFLOXACIN (500MG) 500 MG TABLET PO SCH (14:20)
--- NOTE | 2017-09-03 14:21 | NUR ---
MS RN NOTE PATIENT REQUESTING ATIVAN FOR ANXIOUSNESS. ATIVAN 1MG GIVEN IV. WILL MONITOR FOR SIDE EFFECTS.
--- NOTE | 2017-09-03 14:23 | NUR ---
MARTHA met with pt. and his mother Manisha [facility] and gave him a list of sober livings. Pt. does not want to go back to the sober living he was residing at.
[2017-09-03 16:00] VITALS: BP 114/63
[2017-09-03] MEDS: ENOXAPARIN SODIUM 40 MG/0.4 ML DISP.SYRIN SQ SCH (17:01)
--- NOTE | 2017-09-03 18:50 | NUR ---
MS RN CLOSING NOTE PATIENT IS ALERT AND ORIENTED x4. RESTING COMFORTABLY AT THIS TIME. NO SOB OR DISTRESS NOTED. NO PAIN NOTED. CALL LIGHT WITHIN REACH AT ALL TIMES. SAFETY MEASURES IMPLEMENTED, ABLE TO COMMUNICATE NEEDS. PATIENT REQUESTING ATIVAN FOR ANXIETY, 1MG IV GIVEN. WILL MONITOR FOR ANY SIDE EFFECTS. WILL HAVE LABS IN AM. IV INTACT AND PATENT NO REDNESS OR SWELLING NOTED. PATIENT IS NOT COMPLIANT WITH ACTIVITY ORDERS, PATIENT VERY UNSTEADY ON FEET NEEDS STANDBY ASSISTANCE, KEPT REINFORCING THAT PATIENT NEEDS TO ASK FOR ASSISTANCE. WILL ENDORSE TO ADMINISTRATIVE ASST NURSE FOR ENRICO
[2017-09-03 20:00] VITALS: BP 117/71
[2017-09-04] MEDS: LORAZEPAM INJ 2 MG/ML VIAL IV PRN ×2 (05:42→11:02)
--- NOTE | 2017-09-04 06:57 | NUR ---
MS RN NOTES AWAKE & RESPONSIVE. NOT IN ANY DISTRESS. NO SOB NOTED. DENIES ANY PAIN OR DISCOMFORT AT THIS TIME. WITH TLC PATENT & INTACT. MONITORED ACCORDINGLY. CALL LIGHT WITHIN REACH. BED IN LOWEST POSITION. SR UP X3 WITH BED ALARM ON FOR SAFETY. WILL ENDORSE TO NEXT SHIFT.
[2017-09-04] MEDS: VANCOMYCIN 1 GM in IV D5W 250 ML IV SCH (07:07)
--- NOTE | 2017-09-04 07:31 | NUR ---
MS RN OPENING NOTE PATIENT RESTING COMFORTABLY AT THIS TIME. NO FACIAL GRIMACING NOTED FOR PAIN. NO SOB OR DISTRESS NOTED. CALL LIGHT WITHIN REACH. SAFETY MEASURES IMPLEMENTED. ABLE TO COMMUNICATE NEEDS. IV INTACT AND PATENT WITH IV ANTIBIOTICS RUNNING AT THIS TIME. PENDING LABS THIS MORNING. WILL CONTINUE TO MONITOR THROUGHOUT SHIFT
[2017-09-04 08:00] VITALS: BP 113/56
[2017-09-04 09:00] VITALS: BP 113/56
[2017-09-04] MEDS: LISINOPRIL (10MG) 10 MG TABLET PO SCH (09:00)
[2017-09-04 11:25] LABS: EOSINOPHILS % (AUTO) 3.2 % (0.0-6.0); HEMATOCRIT 39 % (39-51); HEMOGLOBIN 13.2 g/dL (13.5-17.5); LYMPHOCYTES # (AUTO) 1.1 /CMM (0.8-4.8); LYMPHOCYTES % (AUTO) 6.9 % (20.0-44.0); MEAN CORPUSCULAR HGB CONC 34 g/dl (31.0-36.0); MEAN CORPUSCULAR VOLUME 91 fL (80-96); MONOCYTES % (AUTO) 6.3 % (2.0-12.0); NEUTROPHILS # (AUTO) 13.8 /CMM (1.8-8.9); NEUTROPHILS % (AUTO) 83.6 % (43.0-81.0); PLATELET COUNT (AUTO) 262 /CMM (150-450); RDW COEFFICIENT OF VARIATION 12.1 (11.5-15.0); RED BLOOD CELL COUNT(AUTO) 4.26 MIL/uL (4.5-6.0); WHITE BLOOD COUNT (AUTO) 16.5 K/uL (4.3-11.0)
[2017-09-04 11:31] LABS: POTASSIUM 3.7 mmol/L (3.5-5.1)
[2017-09-04] MEDS ORDERED: LISI10TA59 PO (11:51)
--- NOTE | 2017-09-04 13:38 | NUR ---
CARD FEEDER NOTE PATIENT IS ALERT AND ORIENTED x4. NO PAIN AT THIS TIME. NO SOB OR DISTRESS NOTED. CALL LIGHT WITHIN REACH AT ALL TIMES. SAFETY MEASURES IMPLEMENTED. ALL DUE MEDICATIONS GIVEN ORDERED. ALL NURSING CARE NEEDS ATTENDED TO. IV REMOVED, SKIN INTACT. ALL BELONGINGS WITH PATIENT AT BEDSIDE UPON DISCHARGE. ALL DISCHARGE INSTRUCTIONS GIVEN TO PATIENT AND MOM AT BEDSIDE. ALL DISCHARGE INSTRUCTIONS RECEIVED BACK FROM PATIENT AND MOTHER. PRESCRIPTION GIVEN TO MOM AT DISCHARGE. LEFT VIA PRIVATE CAR WITH MOTHER TO HOME
== END 2017-09-04 13:30 | disposition home or self-care (01) | DRG 812 ==
LOC: ER 14:36 → ICU 17:04 → MEDSG2 09-02 15:01
PROVIDERS: ADMIT Internal Medicine; ATTEND Internal Medicine
PROC: 0BH18EZ Insertion of Endotracheal Airway into Trachea, Via Natural or Artificial Opening Endoscopic (ICD-10-PCS; principal; 2017-08-29)
PROC: 5A1945Z Respiratory Ventilation, 24-96 Consecutive Hours (ICD-10-PCS; principal; 2017-08-29)
PROC: 05HN33Z Insertion of Infusion Device into Left Internal Jugular Vein, Percutaneous Approach (ICD-10-PCS; 2017-08-30)
PROC: B544ZZA Ultrasonography of Left Jugular Veins, Guidance (ICD-10-PCS; 2017-08-30)
DX: T40.4X1A Poisoning by other synthetic narcotics, accidental (unintentional), initial encounter (principal); J96.01 Acute respiratory failure with hypoxia; I21.A1 Myocardial infarction type 2; K72.00 Acute and subacute hepatic failure without coma; N17.0 Acute kidney failure with tubular necrosis; J81.1 Chronic pulmonary edema; A41.9 Sepsis, unspecified organism; J15.6 Pneumonia due to other Gram-negative bacteria; I42.9 Cardiomyopathy, unspecified; R65.21 Severe sepsis with septic shock; Z88.0 Allergy status to penicillin; E87.2 Acidosis; R74.0 Nonspecific elevation of levels of transaminase and lactic acid dehydrogenase [LDH]; D64.9 Anemia, unspecified; F19.10 Other psychoactive substance abuse, uncomplicated; F33.1 Major depressive disorder, recurrent, moderate; F41.0 Panic disorder [episodic paroxysmal anxiety]; I50.9 Heart failure, unspecified; Y92.009 Unspecified place in unspecified non-institutional (private) residence as the place of occurrence of the external cause
CPT/HCPCS: 31720; 36415; 36600; 70450-TC; 71045-TC; 80048-TC; 80053-TC; 80076-TC; 80202-TC; 80305; 81000-TC; 82553-TC; 82803-TC; 83605-TC; 83735-TC; 83880; 84100-TC; 84478-TC; 84484-TC; 85025-TC; 85730-TC; 86140-TC; 87040-TC; 87081-TC; 87086-TC; 92611-TC; 93307-TC; 94002-TC; 94003-TC; 94799-TC; 97116-TC; 97530-TC; A4216; A4606; A6402; C1751; G0480; J1250; J1650; J1940; J1956; J2060; J2310; J2543; J3370; J3480; J3490; J7030; J7040; J7050; J7060; Z7610